=== PATIENT | female | born 1990 | race Caucasian/White ===

== ENCOUNTER 2019-09-08 03:52 | Emergency (ER) | payer MEDICAID, OTHER ==
[~2019-09-08] VITALS: Ht 162.6 cm; Wt 61.0 kg
[~2019-09-08 03:52] MED LIST: HYDR-3237 PO; NORG1TAB6 PO
[2019-09-08 03:56] VITALS: BP 107/62
[2019-09-08] MEDS ORDERED: LIDOCAINE 2%, 20ML SQ ONE (04:00)
[2019-09-08] MEDS ORDERED: LIDOCAINE-MPF 2% ,5ML ONE (04:04)
[2019-09-08] MEDS ORDERED: DIPH,PERTUSS(ACELL),TET VAC/PF 0.5 ML IM-VACC ONE ×2 (04:30→04:38)
== END 2019-09-08 05:16 | disposition home or self-care (01) ==
LOC: ED 05:10
DX: S71.111A Laceration without foreign body, right thigh, initial encounter (principal); F17.200 Nicotine dependence, unspecified, uncomplicated; W25.XXXA Contact with sharp glass, initial encounter; Y93.89 Activity, other specified; Y92.009 Unspecified place in unspecified non-institutional (private) residence as the place of occurrence of the external cause; Y99.8 Other external cause status
CPT/HCPCS: 12042; 90471; 90715; 99284